=== PATIENT | female | born 1965 | race Caucasian/White ===

== ENCOUNTER 2017-10-02 12:41 | Emergency (ER) | payer OTHER, SELFPAY ==
[2017-10-02 12:42] VITALS: BP 171/103; PULSE 79; RESP 18; TEMP 36.8; O2SAT 99; BMI 30.2
--- NOTE | 2017-10-02 13:04 | EKG12_ITS ---
Test Reason : HYPERTENSION Blood Pressure : / mmHG Vent. Rate : 076 BPM Atrial Rate : 076 BPM P-R Int : 152 ms QRS Dur : 074 ms QT Int : 364 ms P-R-T Axes : 045 012 038 degrees QTc Int : 409 ms Normal sinus rhythm Normal ECG Confirmed by JAIME PEREZ ([id number]), editor magazine ELIEL RAMIREZ ([id number]) on 10/13/2017 6:28:45 PM Referred By: DAINA/CARLOS ENRIQUE Confirmed By:JAIME PEREZ
--- NOTE | 2017-10-02 13:05 | RAD_ITS ---
STUDY: X-RAY CHEST REASON FOR EXAM: Female, 52 years old. Hypertension and shortness of breath. TECHNIQUE: Single AP portable view of the chest. COMPARISON: None. FINDINGS: EKG electrodes are seen. The lungs are clear and expanded. There is no demonstrated pleural abnormality. Normal size heart. Normal mediastinum and ortega. Normal visualized pulmonary arteries. There is atherosclerotic tortuosity of the aortic arch and descending thoracic aorta. Normal visualized thoracic spine. Normal visualized ribs, clavicles, and shoulders. There is no demonstrated abnormality of the visualized soft tissue structures of the upper abdomen. RAD/Chest 1 View IMPRESSION: No acute abnormality is seen. Electronically Signed: Vinicio Altamirano MD at 13:46 EDT Tel [phone], Service support ,
--- NOTE | 2017-10-02 13:06 | CT_ITS ---
STUDY: CTA NECK WITH CONTRAST REASON FOR EXAM: Female, 52 years old. Dizziness. RADIATION DOSAGE (If Supplied By Facility): CTDIvol = ( 26.04 ) mGy, DLP = ( 1297.68 ) mGycm TECHNIQUE: CT angiography with multi-detector data acquisition was performed from the aortic arch to the skull base following intravenous administration of 100ML ml of Isovue 370 contrast. MIP images were reconstructed from the axial data set. Post-processing of the angiographic images was performed, with multiplanar reformation and 3D reconstruction. Individualized dose optimization techniques were used for this CT. COMPARISON: None. FINDINGS: There is enlargement of the left lobe of the thyroid gland with tiny hypodensities within it. AORTIC ARCH: Normal visualized aortic arch. Normal origins of the brachiocephalic, left common carotid, and left subclavian arteries. RIGHT CAROTID ARTERIES: Normal right common carotid artery (CCA). Normal right common carotid bulb. Normal origin of the right internal carotid (ICA) artery without a hemodynamically significant stenosis. Normal visualized cervical portion of the right internal carotid artery. Normal origin of the right external carotid artery (ECA). LEFT CAROTID ARTERIES: Normal left common carotid artery (CCA). Normal left common carotid bulb. Normal origin of the left internal carotid (ICA) artery without a hemodynamically significant stenosis. Normal visualized cervical portion of the left internal carotid artery. Normal origin of the left external carotid artery (ECA). VERTEBRAL ARTERIES: Normal bilateral vertebral arteries. CT/CTA Neck W/WO Contrast IMPRESSION: Normal bilateral cervical carotid and vertebral arteries. Electronically Signed: Vinicio Altamirano MD at 15:04 EDT Tel [phone], Service support ,
--- NOTE | 2017-10-02 13:06 | CT_ITS ---
STUDY: CTA OF THE BRAIN REASON FOR EXAM: Female, 52 years old. Dizziness. RADIATION DOSAGE (If Supplied By Facility): CTDIvol = ( 26.04 ) mGy, DLP = ( 1297.68 ) mGycm TECHNIQUE: CT angiography was performed with a multi-detector CT scanner. Data acquisition was obtained from the skull base through the vertex following intravenous administration of 100 ml of Isovue-370. MIP images were reconstructed from the axial data set. Post-processing of the angiographic images was performed, with multiplanar reformation and 3D reconstruction. Individualized dose optimization techniques were used for this CT. COMPARISON: None. FINDINGS: Normal bilateral petrous carotid arteries. There is calcified plaque formation of the right cavernous carotid artery, without a cross-sectional luminal stenosis. Normal left cavernous carotid artery with a normal supraclinoid bifurcation. I suspect a 3.1 mm x 3.2 mm aneurysm of the distal supraclinoid right carotid artery at the bifurcation of the A1 and M1 segment. Normal right A1 segments of the anterior cerebral artery. Normal left A1 segments of the anterior cerebral artery. Normal intact anterior communicating artery (ACOM). Normal bilateral A2 segments of the anterior cerebral arteries. Normal right M1 and M2 segments of the middle cerebral arteries, with a normal M1 bifurcation. Normal left M1 and M2 segments of the middle cerebral arteries, with a normal M1 bifurcation. Normal right posterior communicating artery (PCOM). Normal left posterior communicating artery (PCOM). Normal bilateral vertebral arteries. Normal basilar artery with a normal basilar bifurcation. The visualized bilateral superior cerebellar (SCA) arteries are normal. Normal bilateral P1, P2 and visualized P3 segments of the posterior cerebral arteries. There is no demonstrated abnormality of the visualized brain. CT/CTA Head W/WO Contrast IMPRESSION: Findings suggestive of a 3.1 mm x 3.2 mm aneurysm in the supraclinoid portion of the right internal carotid artery at the bifurcation of the right A1 and M1 segments. Electronically Signed: Vinicio Altamirano MD at 15:04 EDT Tel [phone], Service support ,
--- NOTE | 2017-10-02 13:20 | RAD_ITS ---
STUDY: X-RAY - LEFT ANKLE REASON FOR EXAM: Female, 52 years old. Pain following a twisting injury. TECHNIQUE: 3 view(s) of the ankle. COMPARISON: None. FINDINGS: Normal visualized distal tibia and fibula. Normal medial and lateral malleoli. Normal tibiotalar articulation and ankle mortise. Plantar spur. The visualized subtalar, talonavicular, calcaneocuboid and tarsal articulations are normal. Soft tissue swelling. RAD/Ankle min 3 Views IMPRESSION: Soft tissue swelling. Plantar spur. Electronically Signed: Vinicio Altamirano MD at 13:47 EDT Tel [phone], Service support ,
--- NOTE | 2017-10-02 13:26 | ED.VISSUMM ---
- ER Visit Summary Date of Service: 10/02/17 Chief Complaint: Hypertension History of Present Illness: The patient is a 52 F presenting with high blood pressure. Patient states that she feels off. She states she has felt like this for the past 2 days. She has difficulty describing her symptoms. She denies headache but complains of head heaviness. She states this was relieved with Aleve yesterday. She states this was not a sudden onset headache and was not the worst headache of her life. She has had blood pressures running 170s over 110s. She has no history of hypertension. She twisted her left ankle on Friday. She has a mild cough. Denies other complaints. Physical Examination: Vitals are stable. Blood pressure 171/103 patient is afebrile. Alert no acute distress. HEENT exam is unremarkable. Neck is supple. Lungs are clear and equal bilaterally. Heart is regular rate and rhythm. Abdomen is soft nontender nondistended. Extremities mild left ankle diffuse tenderness Skin is warm and dry. No focal neurologic deficit. Remainder of exam is unremarkable. Emergency Department Course and Treatment: EKG is sinus rate of 76 with no acute ischemic changes. Chest x-ray shows no acute process. Left ankle x-ray shows soft tissue swelling. CBC, chemistries are unremarkable. Troponin is negative. CTA head shows findings suggestive of a 3.1 mm x 3.2 mm aneurysm in the supraclinoid portion of the right internal carotid artery at the bifurcation of the right A1 and M1 segments. CT neck shows normal bilateral cervical carotid and vertebral arteries. Repeat blood pressure is 138/82 without treatment. Patient feels improved on reevaluation. Discussed with Dr. Huynh who recommends follow-up with interventional neuroradiology Dr. Pickard. Discussed with Dr. Pickard's office and they will call the patient for a follow-up appointment. Patient is given this information for follow-up. Discussed with Dr. Bonner. She will be started on metoprolol 12.5 mg p.o. as needed. She was advised to record her blood pressures and follow-up in the office next week. She is advised return to ED for any worsening complaints. 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 It may contain incorrect words, spelling, and punctuation that were not noted in review of the chart prior to signing ED Disposition - Plan for ED Patient: Chief Complaint: Hypertension Referrals: Alecia Bonner DO [Primary Care Provider] -
[2017-10-02 13:40] VITALS: BP 151/93; PULSE 76; RESP 16; O2SAT 97
[2017-10-02 13:46] LABS: Absolute Lymphocyte Count 2.43 X10^3/ul (0.83-4.51); Absolute Neutrophil Count 5.5 X10^3/uL (2.0-7.7); Basophil# 0.03 X10^3/uL; Basophil% 0.3 % (0-1); Eosinophil# 0.07 X10^3/uL; Eosinophils% 0.8 % (0-5); Hematocrit 40.9 % (37-47); Hemoglobin 13.7 g/dl (12.0-15.0); Lymphocyte # 2.43 X10^3/ul (4.0); Lymphocyte % 27.7 % (19-41); Mean Corp Hgb Conc 33.5 g/gl (32-36); Mean Corpuscular Hgb 30.1 pg (27.0-32.0); Mean Corpuscular Volume 89.9 fL (81-99); Mean Platelet Vol. 10.4 fl (6.2-12.0); Monocyte# 0.69 X10^3/uL; Monocyte% 7.9 % (0-10); Neutrophil # 5.51 X10^3/uL (2.7-7.7); Platelet Count 268 K/mm3 (150-450); RBC Distribution Width CV 13.3 % (11.6-14.6); RBC Distribution Width SD 43.3 fl (35.1-43.9); Red Blood Count 4.55 M/mm3 (4.2-5.4); White Blood Count 8.8 K/mm3 (4.4-11.0)
[2017-10-02 13:52] LABS: POSITIVE COUNT NO; POSITIVE DIFFERENTIAL NO; POSITIVE MORPHOLOGY NO
[2017-10-02 14:01] LABS: Anion Gap 7 (5-15); BUN 13 mg/dL (7-18); BUN/Creat Ratio 17.2 RATIO (10-20); Calcium,Total 8.7 mg/dL (8.5-10.1); Chloride 107 mmol/L (98-107); Creatinine, Serum 0.76 mg/dL (0.55-1.02); EST Glomerular Filtration Rate 86 mL/min (>60); Est Glom Filt Rate - Afr Amer 104 mL/min (>60); Estimated Creatinine Clearance 66.08 ml/min; Glucose 87 mg/dL (74-106); Potassium 3.8 mmol/L (3.5-5.1); Sodium Level 141 mmol/L (136-145)
[2017-10-02 15:45] VITALS: BP 135/82; PULSE 94; RESP 20; O2SAT 98
--- NOTE | 2017-10-02 16:30 | ED.DEP ---
ED Disposition - Plan for ED Patient: Chief Complaint: Hypertension Instructions: ED Hypertension New Begin Tx Prescriptions: Metoprolol Succinate 12.5 mg PO DAILY PRN PRN #[id number].er.[id number] PRN Reason: Blood Pressure Elevation Referrals: Alecia Bonner DO [Primary Care Provider] - Additional Instructions: Follow up with Dr Pickard [phone]
[2017-10-02 16:49] VITALS: BP 132/80; PULSE 71; RESP 16; O2SAT 99
== END 2017-10-02 16:49 | disposition home or self-care (01) ==
PROVIDERS: Emergency Provider Emergency Medicine; Family Provider Internal Medicine; PCP Internal Medicine
DX: I67.1 Cerebral aneurysm, nonruptured (principal); I10 Essential (primary) hypertension
CPT/HCPCS: 70496; 70498; 71045; 73610; 80048; 84484; 85025; 93005; 99285; Q9967; A4216

== ENCOUNTER → 2017-12-02 10:28 | Outpatient (CLI) | payer OTHER, SELFPAY ==
--- NOTE | 2017-12-02 10:30 | BI_ITS ---
MAMMOGRAPHY - BILATERAL SCREENING REASON FOR EXAM: Female, 52 years old. Routine annual screening examination. PERTINENT HISTORY: Non-contributory. History of a prior left biopsy demonstrating fibroadenoma. TECHNIQUE: Digital bilateral breast alpa (3D mammographic acquisition) in the CC and MLO projections. 2-D mediolateral oblique (MLO) and craniocaudad (CC) views of both breasts were obtained. CAD: Full Field Digital Mammography with Computer Added Detection was performed. COMPARISON: Comparison is made with prior examination dated November 27, 2015. FINDINGS: Breast Composition: The breasts are heterogeneously dense, which may obscure small masses. There are no dominant masses or suspicious calcifications. A tissue clip marker is seen in the upper outer quadrant of the left breast. Stable appearance of the underlying 2.2 cm nodule. No other significant abnormalities are identified. There has been no significant change since the prior study. BI/SCREENING MAMM (CAD), BILAT IMPRESSION: Stable bilateral screening mammogram. Yearly follow-up mammogram recommended. (A) ASSESSMENT CATEGORY: BIRADS Category 2: Benign. A letter regarding these results will be sent to the patient by the facility within 30 days. Approximately 10% of breast cancers are not detected by mammography. A normal mammogram should not delay biopsy of a clinically suspicious abnormality. [id number] Electronically Signed: Vinicio Altamirano MD at 13:40 EDT Tel [phone], Service support ,
== END ==
PROVIDERS: Family Provider Internal Medicine; PCP Internal Medicine; Visit Provider Obstetrics & Gynecology
DX: Z12.31 Encounter for screening mammogram for malignant neoplasm of breast (principal)
CPT/HCPCS: 77063; 77067

== ENCOUNTER 2018-03-23 06:55 | Day surgery (SDC) | payer OTHER, SELFPAY ==
[2018-02-04 09:49] VITALS: BMI 30.7
[2018-03-23 07:24] VITALS: BP 120/87; PULSE 70; RESP 16; TEMP 37.4; O2SAT 98; BMI 30.7
--- NOTE | 2018-03-23 07:36 | H&P.OPEN ---
History of Present Illness Date of Admission: 03/23/18 The patient is a 52 year old F presents for screening colonoscopy. Patient states she has daily bowel movements denies any blood or abdominal pain or nausea or vomiting. Patient denies any family history of colon cancer. Patient has never had a previous colonoscopy. Past Medical/Surgical History - Planned Operation Planned Operative Procedure/s: COLONOSCOPY Date of Operative Procedure: 03/23/18 Permit Signed: No S.O.S: No Is This Patient Having a Total Joint: No - Previous Hospitalizations/Surgeries HX of Surgeries: KNEE SURGERY TO REMOVE /HEMATOMA, RIGHT. SURGERY ON TOE. EPIDURAL LABOR X2. ANGIOGRAM 2018/[facility] GEN. ENDOMETRIAL ABLATION Any Problems With Anesthesia: No You/Your Family Experience Fever (Hyperthermia) With Anes: No Cholinesterase deficiency: No - Cardiovascular Hx Chest Pain within Last 2 months: No Hx of Irregular Heartbeat and/or Afib: Yes - HX MURMUR Hx Heart Attack: No Hx Congestive Heart Failure: No Hx Rheumatic Fever: No Hx Hypertension: Yes - STATES CONTROLLED WITH MED Hx Internal Defibrillator: No Hx Pacemaker: No Hx Cardiac Catheterization: No Hx Cardiac Surgery/Stents/Etc.: No Hx Stress Test: No HX Edema: No Hx Pain in Legs when Walking/Leg Cramps: No - Respiratory Chronic Cough: No HX of Shortness of Breath: Yes - SLIGHTLY SOB WITH 2 FLIGHTS STAIRS Hoarseness: No Hx Chronic Obstructive Pulmonary Disease (COPD): No Hx Asthma: No Hx Emphysema: No Hx Sleep Apnea: No Hx Oxygen Use at Home: No Hx Respiratory Tract Infection/Cold (presently): No Do You Snore Loudly (louder than talking or can be heard): No Do You Often Feel Tired/ Fatigued/ Sleepy Dring Daytime?: Yes Has Anyone Observed You Stop Breathing During Sleep?: No Result (for STOP score): Positive Hx Smoking: No Smoking Status: Never smoker - Gastrointestinal Hx Gastroesophageal Reflux: No Hx Gastrointestinal Disorders: No Hx Gastrointestinal Bleed: No Hx Ulcer: No Hx Hiatal Hernia: No Difficulty Chewing/Swallowing: No Recent Onset of Swallowing Problems: No Special diet followed at home: No Hx Unplanned Weight Loss of 20#: No HX Unplanned Weight Gain of 20#: No - Neurological Hx Seizures: No HX Syncope/Blackout Spells/Unconsciousness: No Hx CVA/Stroke: No Hx Transient Ischemic Attacks (TIA): No Hx Multiple Sclerosis: No Hx Parkinson's Disease: No Hx Head/Neck Injury: No Hx Headaches: No Hx Back Injury/Pain: Yes - BACK INJURY PER HX/BULGING DISC Recent Onset of Speech Difficulty: No Restless Legs: No Does patient have nerve stimulator: No Patient instructed to have device shut off: No Rep notified?: No - Blood Disorder Hx Leukemia: No Bleeding Tendencies: Yes - BRUISE EASILY Hx Deep Vein Thrombosis: No Hx High Cholesterol: No Blood Transmitted Disease: No Hx Hepatitis: No Hx Cirrhosis: No Hx Anemia: No Hx Blood Disorders: No - Reproduction : No Is Patient Lactating: No Hx Hysterectomy: No Hx Tubal Ligation: No Are You Post Menopause: No Pt Instructed Not To Have Any Sex From Now Until Surgery: - HAD ABLATION - Genitourinary Hx Renal Disease: No - Musculoskeletal Hx Arthritis: No Hx Rheumatoid Arthritis: No Hx Gout: No Recent Onset of an Orthopedic Problem: No - Endocrine Hx Diabetes: No Thyroid Disease: No Hx Steroid Therapy: No - Psycho/Social Hx Substance Use: No Hx Alcohol Use: No Hx Anxiety: No Hx Depression: No Mental Illness: No Hx Dementia: No - Miscellaneous Hx Cancer: No Recent Exposure to Contagious Disease: No Active MRSA: No Hx of C-Diff: No Any Loose Teeth: No Additional information pertinent to anesthesia:: REQUESTS ULTRASOUND FOR DIFFICULT IV STICK IN PAST Allergies No Known Allergies Allergy (Verified 03/18/18 15:43) - Discharge Is Pt Admitted From a Penitentiary, or a [facility]: No Who Could Help: FATHER After D/C, Where Do you Plan to Go: Return Home - Physical Exam General: Alert, Oriented x3, Cooperative, No apparent distress HEENT: Atraumatic Lungs: Normal air movement Cardiovascular: Regular rate Abdomen: Soft, Non Tender, Non-Distended Extremities: No clubbing, No cyanosis, No edema Neurological: Cranial nerves II-XII grossly intact Psych/Mental Status: Normal Affect Vital Signs Temp Pulse Resp BP Pulse Ox 99.3 F H 70 16 120/87 H 98 03/23/18 07:24 03/23/18 07:24 03/23/18 07:24 03/23/18 07:24 03/23/18 07:24 Oxygen Delivery Method Room Air Weight: 162 lb 11.218 oz Body Mass Index (BMI) 30.7 Assessment/Plan 52-year-old female for screening colonoscopy Surgery Risks - Colonoscopy I discussed with the patient the risks of the procedure: Yes Risks Include but are not Limited To: Risks include but are not limited to: Bleeding, perforation requiring further surgery, inability to complete colonoscopy requiring barium enema. Patient had no further questions.
[2018-03-23 08:16] VITALS: BP 116/78; BP 116/83; BP 120/87; PULSE 70; PULSE 71; RESP 16; TEMP 36.9; O2SAT 100; O2SAT 98
--- NOTE | 2018-03-23 08:19 | OP.ENDO_ITS ---
Patient Name: Melody Serna Procedure Date: 03/23/2018 7:32 AM Date of : 1965 Age: 52 Procedure: Colonoscopy Indications: Screening for colorectal malignant neoplasm Providers: Daksha Valencia MD Medicines: Monitored Anesthesia Care Patient Profile: Last Colonoscopy: none. The patient's first colonoscopy is today. Complications: No immediate complications. Procedure: Pre-Anesthesia Assessment: - Prior to the procedure, a History and Physical was performed, and patient medications and allergies were reviewed. The patient's tolerance of previous anesthesia was also reviewed. The risks and benefits of the procedure and the sedation options and risks were discussed with the patient. All questions were answered, and informed consent was obtained. Prior Anticoagulants: The patient has taken no previous anticoagulant or antiplatelet agents. ASA Grade Assessment: II - A patient with mild systemic disease. After reviewing the risks and benefits, the patient was deemed in satisfactory condition to undergo the procedure. After I obtained informed consent, the scope was passed under direct vision. Throughout the procedure, the patient's blood pressure, pulse, and oxygen saturations were monitored continuously. The Colonoscope was introduced through the anus and advanced to the cecum, identified by the appendiceal orifice, ileocecal valve and palpation. The colonoscopy was performed without difficulty. The patient tolerated the procedure well. The quality of the bowel preparation was good. Scope In: 7:59:04 AM Scope Withdrawal Time 0 hours 9 minutes 42 seconds Scope Out: 8:14:10 AM Total Procedure Duration Time 0 hours 15 minutes 6 seconds Findings: The entire examined colon appeared normal. Internal hemorrhoids were found during retroflexion and during digital exam. The hemorrhoids were Grade I (internal hemorrhoids that do not prolapse). Impression: - The entire examined colon is normal. - Internal hemorrhoids. - No specimens collected. Recommendation: - Repeat colonoscopy for surveillance. - Repeat colonoscopy in 10 years for screening purposes. - Discharge patient to home. - Continue present medications. Procedure Code(s): --- Professional --- G0121, Colorectal cancer screening; colonoscopy on individual not meeting criteria for high risk Diagnosis Code(s): --- Professional --- Z12.11, Encounter for screening for malignant neoplasm of colon K64.0, First degree hemorrhoids CPT copyright 2017 [employer]. All rights reserved. The codes documented in this report are preliminary and upon talent acquisition administrator review may be revised to meet current compliance requirements. MD Daksha Dickerson MD 03/23/2018 8:19:21 AM This report has been signed electronically. Number of Addenda: 0 Note Initiated On: 03/23/2018 7:32 AM
[2018-03-23 08:25] VITALS: BP 119/78; BP 120/87; PULSE 59; RESP 16; O2SAT 100
[2018-03-23 08:30] VITALS: BP 120/87; BP 122/76; PULSE 53; RESP 16; O2SAT 100
[2018-03-23 08:35] VITALS: BP 120/87; BP 122/78; PULSE 52; RESP 16; TEMP 36.4; O2SAT 100
[2018-03-23 09:11] VITALS: BP 120/87
== END 2018-03-23 09:12 | disposition home or self-care (01) ==
LOC: EN 06:56 → AC 06:57
PROVIDERS: Family Provider Internal Medicine; PCP Internal Medicine; Referring Provider Surgery; Visit Provider Surgery
PROC: 0DJD8ZZ Inspection of Lower Intestinal Tract, Via Natural or Artificial Opening Endoscopic (ICD-10-PCS; CPT 45378; principal; 2018-03-23 07:55)
DX: Z12.11 Encounter for screening for malignant neoplasm of colon (principal); K64.0 First degree hemorrhoids; I10 Essential (primary) hypertension; Z79.899 Other long term (current) drug therapy
CPT/HCPCS: 45378; J7120

== ENCOUNTER → 2019-01-22 07:24 | Outpatient (CLI) | payer OTHER, SELFPAY ==
--- NOTE | 2019-01-22 07:31 | BI_ITS ---
MAMMOGRAPHY - BILATERAL SCREENING REASON FOR EXAM: Female, 53 years old. Routine annual screening examination. PERTINENT HISTORY: Non-contributory. Prior left breast biopsy. TECHNIQUE: Digital bilateral breast fidencio (3D mammographic acquisition) in the CC and MLO projections. 2-D mediolateral oblique (MLO) and craniocaudad (CC) views of both breasts were obtained. CAD: Full Field Digital Mammography with Computer Added Detection was performed. COMPARISON: Comparison is made with prior study dated December 02, 2017 and November 27, 2015. FINDINGS: Breast Composition: The breasts are heterogeneously dense, which may obscure small masses. There are no dominant masses or suspicious calcifications. Once again, a tissue clip marker is seen within the nodular density in the upper lateral portion of the left breast. The nodule measures 2.1 cm. No other significant abnormalities are identified. There has been no significant change since the prior study. BI/SCREEN MAMM (CAD) W/FIDENCIO BILAT IMPRESSION: Stable bilateral screening mammogram. Yearly follow-up mammogram recommended. (A) ASSESSMENT CATEGORY: BIRADS Category 2: Benign. A letter regarding these results will be sent to the patient by the facility within 30 days. Approximately 10% of breast cancers are not detected by mammography. A normal mammogram should not delay biopsy of a clinically suspicious abnormality. [id number] Electronically Signed: Vinicio Altamirano, at 11:13 EDT , Service support ,
== END ==
PROVIDERS: Family Provider Internal Medicine; PCP Internal Medicine; Referring Provider Obstetrics & Gynecology; Visit Provider Obstetrics & Gynecology
DX: Z12.31 Encounter for screening mammogram for malignant neoplasm of breast (principal)
CPT/HCPCS: 77063; 77067

== ENCOUNTER → 2020-01-24 16:24 | Outpatient (CLI) | payer OTHER, SELFPAY ==
[2019-10-14 08:51] VITALS: BMI 30.7
--- NOTE | 2020-01-24 16:24 | BI_ITS ---
MAMMOGRAPHY - BILATERAL SCREENING REASON FOR EXAM: Female, 54 years old. Routine annual screening examination. PERTINENT HISTORY: Non-contributory. TECHNIQUE: Digital bilateral breast fidencio (3D mammographic acquisition) in the CC and MLO projections. 2-D mediolateral oblique (MLO) and craniocaudad (CC) views of both breasts were obtained. CAD: Full Field Digital Mammography with Computer Added Detection was performed. COMPARISON: Comparison is made with prior study dated 01/22/2019 and 12/02/2017. FINDINGS: Breast Composition: The breasts are heterogeneously dense, which may obscure small masses. There are no dominant masses or suspicious calcifications. Once again, a tissue clip marker is seen within a nodular density in the upper lateral portion of the left breast. This nodule is unchanged and measures 2 cm. Stable benign-appearing bilateral axillary lymph nodes. No other significant abnormalities are identified. There has been no significant change since the prior study. BI/SCREEN MAMM (CAD) W/FIDENCIO BILAT IMPRESSION: Stable bilateral screening mammogram. Yearly follow-up mammogram recommended. (A) ASSESSMENT CATEGORY: BIRADS Category 2: Benign. A letter regarding these results will be sent to the patient by the facility within 30 days. Approximately 10% of breast cancers are not detected by mammography. A normal mammogram should not delay biopsy of a clinically suspicious abnormality. [id number] Electronically Signed: Vinicio Altamirano, at 8:27 EDT , Service support ,
== END ==
PROVIDERS: PCP Internal Medicine; Referring Provider Obstetrics & Gynecology; Visit Provider Obstetrics & Gynecology
DX: Z12.31 Encounter for screening mammogram for malignant neoplasm of breast (principal)
CPT/HCPCS: 77063; 77067

== ENCOUNTER → 2020-10-19 16:36 | Outpatient (CLI) | payer OTHER, SELFPAY ==
[2020-10-19 14:50] VITALS: BMI 30.7
[2020-10-25 12:50] LABS: HPV APTIMA, High Risk Negative (Negative)
== END ==
PROVIDERS: PCP Internal Medicine; Referring Provider Obstetrics & Gynecology; Visit Provider Obstetrics & Gynecology
DX: Z12.4 Encounter for screening for malignant neoplasm of cervix (principal)
CPT/HCPCS: 87624; 88175; G0145

== ENCOUNTER → 2020-11-21 13:18 | Outpatient (CLI) | payer OTHER, SELFPAY ==
[2020-10-19 14:50] VITALS: BMI 30.7
--- NOTE | 2020-11-21 13:24 | US_ITS ---
STUDY: ULTRASOUND OF THE FEMALE PELVIS - COMPLETE REASON FOR EXAM: Female, 55 years old. Enlarged uterus LMP: Patient is postmenopausal. Prior endometrial ablation. TECHNIQUE: Transabdominal and Transvaginal TECHNICAL QUALITY: Adequate. COMPARISON: None. FINDINGS: The uterus is anteverted and is in a midline position. The uterus is enlarged and measures 14.3 cm x 10.6 cm x 10.5 cm. Normal uterine cervix. The endometrium was not well visualized due to the large uterine fibroid. There is no demonstrated endometrial mass. There is a 9.4 cm x 9.2 cm x 8.6 cm fibroid. I.U.D. - The patient does not have an I.U.D. The right ovary is visualized. The right ovary measures 4.1 cm x 3.1 cm x 2.5 cm. There is no right ovarian cyst or ovarian mass. There is no visualized right adnexal mass or complex lesion. There is normal arterial and normal venous vascularity. The left ovary is visualized. The left ovary measures 4.1 cm x 3.8 cm x 2.2 cm. There is a dominant follicle measuring 1.2 cm x 1.2 cm x 1.3 cm. There is no visualized left adnexal mass or complex lesion. There is normal arterial and normal venous vascularity. There is no fluid in the cul-de-sac. The pre void volume of the bladder was 367 ml. US/Pelvic (Non ) IMPRESSION: Enlarged fibroid uterus. The fibroid measures 9.4 cm x 9.2 cm x 8.6 cm. Electronically Signed: Vinicio Altamirano MD at 20:26 EDT , Service support ,
--- NOTE | 2020-11-21 13:24 | US_ITS ---
STUDY: ULTRASOUND OF THE FEMALE PELVIS - COMPLETE REASON FOR EXAM: Female, 55 years old. Enlarged uterus LMP: Patient is postmenopausal. Prior endometrial ablation. TECHNIQUE: Transabdominal and Transvaginal TECHNICAL QUALITY: Adequate. COMPARISON: None. FINDINGS: The uterus is anteverted and is in a midline position. The uterus is enlarged and measures 14.3 cm x 10.6 cm x 10.5 cm. Normal uterine cervix. The endometrium was not well visualized due to the large uterine fibroid. There is no demonstrated endometrial mass. There is a 9.4 cm x 9.2 cm x 8.6 cm fibroid. I.U.D. - The patient does not have an I.U.D. The right ovary is visualized. The right ovary measures 4.1 cm x 3.1 cm x 2.5 cm. There is no right ovarian cyst or ovarian mass. There is no visualized right adnexal mass or complex lesion. There is normal arterial and normal venous vascularity. The left ovary is visualized. The left ovary measures 4.1 cm x 3.8 cm x 2.2 cm. There is a dominant follicle measuring 1.2 cm x 1.2 cm x 1.3 cm. There is no visualized left adnexal mass or complex lesion. There is normal arterial and normal venous vascularity. There is no fluid in the cul-de-sac. The pre void volume of the bladder was 367 ml. US/Transvaginal Non- IMPRESSION: Enlarged fibroid uterus. The fibroid measures 9.4 cm x 9.2 cm x 8.6 cm. Electronically Signed: Vinicio Altamirano MD at 20:26 EDT , Service support ,
== END ==
PROVIDERS: PCP Internal Medicine; Referring Provider Obstetrics & Gynecology; Visit Provider Obstetrics & Gynecology
DX: N85.2 Hypertrophy of uterus (principal)
CPT/HCPCS: 76830; 76856

== ENCOUNTER → 2021-01-24 12:53 | Outpatient (CLI) | payer OTHER, SELFPAY ==
[2019-10-14 08:51] VITALS: BMI 30.7
--- NOTE | 2021-01-24 12:55 | BI_ITS ---
MAMMOGRAPHY - BILATERAL SCREENING REASON FOR EXAM: Female, 55 years old. Routine annual screening examination. PERTINENT HISTORY: Non-contributory. Prior left ultrasound-guided breast biopsy. TECHNIQUE: Digital bilateral breast fidencio (3D mammographic acquisition) in the CC and MLO projections. 2-D mediolateral oblique (MLO) and craniocaudad (CC) views of both breasts were obtained. CAD: Full Field Digital Mammography with Computer Added Detection was performed. COMPARISON: Comparison is made with prior study dated 01/24/2020 and 01/22/2019. FINDINGS: Breast Composition: The breasts are heterogeneously dense, which may obscure small masses. There are no dominant masses or suspicious calcifications. A tissue clip marker is once again seen within the nodular density in the upper lateral portion of the left breast. This measures 2 cm. This is unchanged. Stable benign-appearing bilateral axillary lymph nodes. No other significant abnormalities are identified. There has been no significant change since the prior study. BI/SCRN MAMM (CAD)W/FIDENCIO BILAT IMPRESSION: Stable bilateral screening mammogram. Yearly follow-up mammogram recommended. (A) ASSESSMENT CATEGORY: BIRADS Category 2: Benign. A letter regarding these results will be sent to the patient by the facility within 30 days. Approximately 10% of breast cancers are not detected by mammography. A normal mammogram should not delay biopsy of a clinically suspicious abnormality. [id number] Electronically Signed: Vinicio Altamirano MD at 14:13 EDT , Service support ,
== END ==
PROVIDERS: PCP Internal Medicine; Referring Provider Obstetrics & Gynecology; Visit Provider Obstetrics & Gynecology
DX: Z12.31 Encounter for screening mammogram for malignant neoplasm of breast (principal)
CPT/HCPCS: 77063; 77067

== ENCOUNTER → 2021-01-31 14:18 | Outpatient (CLI) | payer OTHER, SELFPAY ==
--- NOTE | 2021-01-31 14:20 | US_ITS ---
STUDY: ULTRASOUND TRANSVAGINAL CLINICAL: Female, 55 years old. Enlarged uterus TECHNIQUE: Transabdominal and Transvaginal COMPARISON: None. FINDINGS: Uterus measures 14.7 x 8.8 x 10.2 cm in maximal dimension. Large fundal fibroids, best characterized fibroid measures at least 8.4 cm in maximal dimension. Endometrium not well identified. Nabothian cysts are identified. Normal right ovary, measuring 3.8 x 3.3 x 2.1 cm. There are multiple follicles without a dominant cyst. Normal left ovary, measuring 3.1 x 2.5 x 1.8 cm. There are multiple follicles without a dominant cyst. There is no free fluid in the pelvis. Polycystic ovary disease: No. US/Transvaginal Non- IMPRESSION: Fibroid uterus as above. Endometrium is not visualized on this examination. Electronically Signed: Rebel Pimentel MD at 17:05 EDT Tel , Service support ,
--- NOTE | 2021-01-31 14:20 | US_ITS ---
STUDY: ULTRASOUND TRANSVAGINAL CLINICAL: Female, 55 years old. Enlarged uterus TECHNIQUE: Transabdominal and Transvaginal COMPARISON: None. FINDINGS: Uterus measures 14.7 x 8.8 x 10.2 cm in maximal dimension. Large fundal fibroids, best characterized fibroid measures at least 8.4 cm in maximal dimension. Endometrium not well identified. Nabothian cysts are identified. Normal right ovary, measuring 3.8 x 3.3 x 2.1 cm. There are multiple follicles without a dominant cyst. Normal left ovary, measuring 3.1 x 2.5 x 1.8 cm. There are multiple follicles without a dominant cyst. There is no free fluid in the pelvis. Polycystic ovary disease: No. US/Pelvic (Non ) IMPRESSION: Fibroid uterus as above. Endometrium is not visualized on this examination. Electronically Signed: Rebel Pimentel MD at 17:05 EDT Tel , Service support ,
== END ==
PROVIDERS: PCP Internal Medicine; Referring Provider Obstetrics & Gynecology; Visit Provider Obstetrics & Gynecology
DX: N85.2 Hypertrophy of uterus (principal)
CPT/HCPCS: 76830; 76856

== ENCOUNTER 2021-03-06 09:16 | Day surgery (SDC) | payer OTHER, SELFPAY ==
--- NOTE | 2021-03-02 14:10 | EKG12_ITS ---
Test Reason : PREOP Blood Pressure : / mmHG Vent. Rate : 085 BPM Atrial Rate : 085 BPM P-R Int : 164 ms QRS Dur : 078 ms QT Int : 354 ms P-R-T Axes : 058 006 051 degrees QTc Int : 421 ms Normal sinus rhythm Normal ECG Confirmed by MAVERICK EVANS, MOIZ ([id number]), digital editor DIPIKA PARIKH ([id number]) on 03/06/2021 9:53:23 AM Referred By: Tahira Do Confirmed By:MOIZ TEMPLE MD
[2021-03-02 14:47] LABS: Absolute Lymphocyte Count 2.84 X10^3/uL (0.83-4.51); Absolute Neutrophil Count 6.1 X10^3/uL (2.0-7.7); Basophil# 0.03 X10^3/uL; Basophil% 0.3 % (0-1); Eosinophil# 0.07 X10^3/uL; Eosinophils% 0.7 % (0-5); Hematocrit 41.1 % (37-47); Hemoglobin 13.5 g/dL (12.0-15.0); Lymphocyte # 2.84 X10^3/ul (0.83-4.51); Lymphocyte % 29.4 % (19-41); Mean Corp Hgb Conc 32.8 g/dL (32-36); Mean Corpuscular Hgb 29.5 pg (27.0-32.0); Mean Corpuscular Volume 89.9 fL (81-99); Mean Platelet Vol. 10.2 fl (6.2-12.0); Monocyte# 0.63 X10^3/uL; Monocyte% 6.5 % (0-10); NRBC Flagged by Analyzer 0 % (0-5); Neutrophil # 6.07 X10^3/uL (2.7-7.7); Neutrophil % 62.8 % (47-70); Platelet Count 290 K/mm3 (150-450); RBC Distribution Width SD 42.5 fl (35.1-43.9); Red Blood Count 4.57 M/mm3 (4.2-5.4); White Blood Count 9.7 K/mm3 (4.4-11.0)
[2021-03-02 15:10] LABS: ALB/GLOB Ratio 0.9 RATIO (0.9-2.4); AST(SGOT) 18 U/L (15-37); Alanine Aminotransfer ALT/SGPT 19 U/L (13-56); Albumin, Serum 3.3 g/dL (3.2-5.0); Alkaline Phosphatase 75 U/L (45-117); Anion Gap 5 (5-15); BUN 17 mg/dL (7-18); BUN/Creat Ratio 18.8 RATIO (10-20); Calcium,Total 8.5 mg/dL (8.5-10.1); Chloride 106 mmol/L (98-107); EST Glomerular Filtration Rate 69 mL/min (>60); Est Glom Filt Rate - Afr Amer 84 mL/min (>60); Globulin 3.8 g/dL (2.2-4.2); Glucose 104 mg/dL (74-106); Magnesium 1.8 mg/dL (1.6-2.6); Potassium 3.7 mmol/L (3.5-5.1); Protein, Total 7.1 g/dL (6.4-8.2); Sodium Level 141 mmol/L (136-145)
[2021-03-06] VITALS (20 sets, daily range): BP systolic 78–133; BP diastolic 50–85; PULSE 65–89; RESP 6–18; TEMP 36.3–37.7; O2SAT 88–99; BMI 32.5
--- NOTE | 2021-03-06 | HYST_PTH ---
PATIENT: JUAN NAIDU [place] [facility] [place][id number] AGE/SX: 55/F ROOM: RE03/06/[address]: Dr. Tahira Do MD : 1965 BED: DIS: 03/06/2021 SPEC #: [id number] RECD: 03/06/21 14:51 STATUS: TAY FRANK #: [id number] NIEVES: 03/06/21 00:[address]: Tahira Do DEPT: SURGICAL PATHOLOGY RECD BY: Randy Carpio ENTERED: 03/07/21 09:10 SP TYPE: HYSTERECT OTHR DR: Dr. Alecia Bonner DO Tissues: Uterus, NOS Procedures: Surgery Specimen Level V HEADER OPERATION: ERAS, hysterectomy, LAVH, salpingectomy PRE-OP DIAGNOSIS: Uterine fibroid, enlarged uterus TISSUE SUBMITTED: Cervix, uterus, bilateral fallopian tubes MICROSCOPIC DIAGNOSIS Cervix, uterus, bilateral fallopian tubes, hysterectomy and bilateral salpingectomy: Cervix ? mild chronic cystic cervicitis. Endometrium ? see comment. Myometrium ? intramural leiomyomas (largest measuring 8 cm in greatest dimension). Bilateral fallopian tubes - no pathologic diagnosis. SJ:rg 03/08/2021 COMMENT The endometrium is not identified in the sections examined. MICROSCOPIC DESCRIPTION Slides are reviewed. GROSS DESCRIPTION Received in fixative is one container labeled with the patient's name and designated cervix, uterus, bilateral fallopian tubes. The specimen consists of a hysterectomy specimen consisting of uterus with cervix in multiple pieces and bilateral fallopian tubes attached to the largest piece of uterus. The uterus with cervix in multiple pieces weigh in aggregate 577 gm. The largest piece of uterus measures 10 x 8 x 7 cm and the smaller pieces including cervix in aggregate measure 19 x 15 x 5 cm. Two detached pieces consistent with cervix are noted. The ectocervical mucosa is unremarkable. The endocervical canal measures 4 cm in length. The endocervical mucosa is bourgeois, glistening and unremarkable. Sections of the largest piece of uterus reveal a large nodular mass measuring 8 cm in greatest dimension. Sections of the smaller pieces also reveal nodular masses. An obvious endometrial cavity could not be identified. Sections of these masses reveal bourgeois whorled cut surfaces without areas of hemorrhage, necrosis or cystic degeneration. The fallopian tubes could not be oriented due to disrupted nature of the specimen. One of the fallopian tube measures 6 cm in length and up to 1 cm in diameter. The fimbrial end is identified. Sections reveal unremarkable cut surfaces. The second fallopian tube is similar appearance to the first one and measures 7 cm in length and up to 1 cm diameter. Foot Orthopedist sections are submitted in 12 cassettes as follows: 1 & 2 - cervix, 3-7 - uterine wall, 8 - largest nodular mass, 9 & 10 - smaller nodular masses, 11 &12 - fallopian tubes with each cassette containing one fallopian tube. / DARLEEN:mirna 03/07/21 TC:1 CPT: 74586
--- NOTE | 2021-03-06 05:22 | HP.PCM_ITS ---
History and Physical Date of Admission: 03/06/21 Intake Visit Reasons: [facility] Chief Complaint: pre op [facility] [employer] Reservations Required: No Is patient in pain?: No Allergies No Known Allergies Allergy (Verified 02/19/21 08:44) Is last menstrual period known: No Post menopausal: No Patient : No : No PFSH Medical History Hyperlipidemia Hypertension Surgical History History of endometrial ablation Social History number of children: 2 current occupational status: employed current occupation: speech therapist Smoking Status: Never smoker alcohol intake: never substance use type: does not use caffeine: Yes what type of physical activity do you participate in: none seatbelt use: always do you feel safe at home: Yes HPI CLAIRE BS Details: JUAN NAIDU is a 55 year old who presents for preop visit with enlarged uterus, multiple fibroids and she had had an ablation a long time ago and hasn't had bleeding but uterus has been enlarged. Female Reproductive History Menopausal Symptoms: No hot flashes, No night sweats, No difficulty concentrating and No change in libido Pregancy History 2 Elective abortions Hx Para 2 Spontaneous abortions Hx # Term Pregnancies Ectopic pregnancies Hx # Pregnancies Multiple births # of living children 2 Past Pregnancies Del. Date Name GA/Weeks Outcome Route Bth Weight Infant Gen Labor Lgth Anesthesia Del [facility] Provider FOB Unknown Jose 1994 Unknown [id number] ROS Const Constitutional: Reports as per HPI; Denies fatigue, increased appetite, poor appetite, night sweats, weight gain or weight loss ENT ENT: Reports system reviewed and no additional complaints, except as documented Cardio Card: Denies chest pain Resp Resp: Denies cough or dyspnea GI GI: Reports as per HPI, abdominal pain and bloating; Denies constipation, nausea or vomiting : Reports as per HPI, urinary frequency, urinary urgency and other; Denies difficulty voiding, dysuria, hematuria, hot flashes, nipple discharge, pelvic pain, prolapse symptoms, urinary incontinence, vaginal discharge, vaginal dryness, vaginal odor or vaginal pruritus Musc Musc: Denies arthralgias, back pain or muscle weakness Skin Skin/Breast: Denies changing lesions, breast mass, breast pain, breast skin changes or nipple discharge Neuro Neuro: Reports system reviewed and no additional complaints, except as documented Psych Psych: Denies anxiety, change in libido, depression or difficulty concentrating Endo Endo: Denies cold intolerance, excessive sweating, heat intolerance or polydipsia Mir/Lymph Hematologic/Lymphatic: Denies easy bleeding, Denies easy bruising and Denies lymphadenopathy Exam Const General: cooperative, healthy appearing, comfortable, no acute distress, well developed and well groomed Orientation: alert [facility] Head: normal to inspection and normocephalic Ears: hearing grossly normal bilaterally and external ears normal Nose: external nose normal Face and sinus: normal facial exam Neck Neck: normal visual inspection, full ROM and no lymphadenopathy Thyroid: thyroid normal Chest Chest palpation & inspection: normal inspection of the chest Resp Effort & Inspection: normal respiratory effort Auscultation: clear to auscultation bilaterally Cardio Rate: regular rate Rhythm: regular rhythm Heart Sounds: S1 normal and S2 normal GI Inspection: normal to inspection and non-distended Palpation: soft, no hepatosplenomegaly and no guarding General: bladder normal to palpation External Female Exam: normal external appearance, normal appearance of the urethra and no lesions Urethra: normal appearance of the urethra and normal palpation Speculum Exam - Vagina: normal appearance of the vagina and normal vaginal discharge Speculum Exam - Cervix: normal appearance of the cervix, no cervical discharge, no lesions and nontender Bimanual Exam- Vagina & Uterus: normal bimanual exam, bladder normal to palpation, No tender, uterine mobility normal, non-tender, no cervical motion tenderness and enlarged (12-14 weeks anterior enlarged) Bimanual Exam- Adnexa, other: normal adnexae, no masses, normal and non-tender Pelvic Support: normal Musc Other: gross motor intact no deficits, full bilateral strength Skin General: no rashes or lesions noted Neuro General: patient alert, moves all extremities and no focal motor deficits Motor: muscle tone normal throughout Extrem General: normal to inspection and no pedal edema Psych Appearance: grossly normal Mental Status: mental status grossly normal Affect: normal affect Speech and Movement: speech and movement normal Attitude: cooperative Coding Level of Care Code No Charge Diagnoses Uterine fibroid D25.9 Enlarged uterus N85.2 Assessment and Plan Assessment and Plan (1) Uterine fibroid: Status: Acute Comment: 13 cm uterus with 9 cm fibroid. Plan [facility] possible TLH possible cystoscopy possible minilaparotomy. discussed medical vs surgical options. Plan - Dr. Tahira Do MD: After discussing the patient's diagnosis and treatment plan options, patient wishes to proceed with surgical management. I have discussed with the patient the risks, benefits, and alternatives of the procedure which include but are not limited to risks of anesthesia, bleeding, infection, possible damage to bowel, bladder, or surrounding vasculature which could lead to additional surgery to evaluate any complications. Patient agrees to procedure and wishes to proceed. ACOG/uptodate references given for additional information regarding procedure. (2) Enlarged uterus: Status: Acute Comment: pelvic ultrasound UPDATE- I have seen the patient and performed any clinically relevant updates to the history and physical exam. Tahira Do MD
[2021-03-06] MEDS: Scopolamine 1mg/72hr Patch 1 PATCH TD (10:07)
[2021-03-06] MEDS: Gabapentin 600 MG Tablet PO (10:07)
[2021-03-06] MEDS: Acetaminophen 500 MG Tablet 1000 MG PO (10:07)
[2021-03-06] MEDS: Celecoxib 200 MG Capsule 400 MG PO (10:07)
[2021-03-06] MEDS: Phenazopyridine 95 MG Tablet 190 MG PO (10:07)
[2021-03-06] MEDS: dexAMETHasone 10 MG/ML Vial 8 MG IV (10:08)
[2021-03-06] MEDS: Enoxaparin 40 MG/0.4 ML Syringe SC (10:08)
[2021-03-06] MEDS: Lactated Ringers 1,000 ML 40 ML IV ×2 (10:08→12:30)
[2021-03-06 10:16] LABS: Bedside Glucose 81 mg/dL (70-110)
[2021-03-06] MEDS: Cefazolin 2 GM in 0.9% Normal Saline 100 ML IV (11:22)
--- NOTE | 2021-03-06 11:39 | OP.PCM_ITS ---
Problems Associated Problem List Diagnoses (1) Enlarged uterus: (2) Uterine fibroid: Report of Operation Date of Procedure: 03/06/21 Pre-Operative Diagnosis: AUB Post-Operative Diagnosis: same Surgery/Procedure Performed:: [employer] pigment and lacquer mixer: Hanna Velásquez Type of Anesthesia: General Specimen's removed: uterus, tubes Drains: carson Fluids Replaced: crystalloid Description of Procedure: Patient received preoperative antibiotics and SCDs were on preoperatively. Patient was taken back to the operating room and placed in the dorsal lithotomy position. General anesthesia was induced and patient was prepped and draped in normal sterile fashion. Uterine manipulator was placed inside the uterus and Carson catheter placed in the bladder. The umbilicus was grasped with towel clamps and an intraumbilical incision was made after injecting with quarter percent Marcaine and a Veress needle entered into the abdomen confirmed to be intra-abdominal with a low opening pressure. Abdomen was insufflated with CO2 gas and the Veress needle removed and the 5 mm trocar was placed under direct visualization without complication. Right and left lower quadrants were transilluminated and injected with quarter percent Marcaine and 5 mm ports placed under direct visualization. Pelvis was well visualized see operative findings for additional information. Bilateral fallopian tubes were identified and transected with the LigaSure device across the mesosalpinx to the level of the utero-ovarian ligament which was also transected with the LigaSure device. The broad ligament was opened up by transecting the round ligament bilaterally and skeletonizing the uterine vessels bilaterally and creating a bladder flap using the LigaSure device. The uterine arteries were transected bilaterally with good visualization of the bladder and the ureters were seen to be inferior lateral to the operative area. Attention was then paid to the vaginal portion of the procedure and the cervix was grasped with Shania clamps and circumferentially injected with dilute vasopressin. A circumferential incision was made and the vaginal mucosa was mobilized off posteriorly and the cul-de-sac entered into sharply and a longneck speculum placed. The anterior cul-de-sac was then identified and entered into sharply. The uterosacral ligaments were clamped cut and suture ligated with 0 Monocryl bilaterally followed by the cardinal ligaments which were clamped cut and suture ligated bilaterally with 0 Monocryl. The uterus serially descended and was removed though morcellation via wedge resection. Pelvic sidewall pedicles were checked and noted to have excellent hemostasis after additional sutures were placed. The vaginal mucosa was reapproximated incorporating the posterior peritoneum. This was reapproximated using 0 Vicryl [id number] sutures. Excellent hemostasis was noted. The pelvis and cul-de-sac were well visualized and no significant active bleeding noted but some raw areas were seen on the peritoneum and therefore floseal was applied. Pressure was taken down and the areas visualized and noted of excellent hemostasis. All ports were removed under direct visualization without complication and the abdomen was desufflated of air. The instruments were removed from the abdomen and the vaginal sweep was negative. Port sites on the abdomen were closed with 4-0 Monocryl interrupted sutures and Steri's and windows were applied. She was awok en and taken recovery in stable condition. Grafts/Implants Used: none Complications none Admit VTE Documentation VTE Present on Admission: No VTE Mechan Device Prophylaxis: SCD's VTE Pharm Prophylaxis ordered?: Yes Procedures Urinary/Genital 52xxx-59xxx: 53891 LAVH+BS/O >250gr Uterus
[2021-03-06] MEDS: Lubricating Jelly 60 GM Tube 30 GM TOPICAL (11:58)
[2021-03-06] MEDS: Vasopressin 20 UNITS/ML Vial (11:58)
[2021-03-06] MEDS: Bupivacaine 0.25% 30 ML Vial (12:00)
[2021-03-06] MEDS: Lactated Ringers 1,000 ML 500 ML IV (18:30)
--- NOTE | 2021-03-06 19:42 | PCM.DC ---
Discharge Instructions Diet Discharge Diet: No restrictions Activity Discharge Activity: Return to Normal Activity, May Not Drive (while taking narcotic pain medications.) and May Shower May resume sexual activity in: 6-8 weeks Dressing / Incision Call your doctor if your incision/area has: Continuous Slow Oozing, Sudden Increased Bleeding, Increased Pain/ Swelling, Increased Redness and Foul Smelling Discharge Call your doctor if you observe: Fever of 101 or Higher, Inability to urinate, Inability to have a bowel movement and Using more than 1 pad per hour Follow Up Care Please Follow Up With: Tahira Do MD Test Results: Test results from this visit will be discussed in further detail at your follow-up appointment, if applicable. Discharge Plan Admission Attending Provider: Tahira Do Primary Care Provider: Alecia Bonner Discharge Orders/Prescriptions Prescriptions: New naproxen 250 MG tablet 250 - 500 mg PO Q8H PRN PRN (Reason: MILD PAIN) Qty: 30 RF: 1 oxycodone-acetaminophen [Percocet] 5-325 mg tablet 1 tab PO Q6H PRN (Reason: pain) 7 Days Qty: 20 RF: 0 Continued metoprolol succinate 50 MG tablet extended release 24 hr 50 mg PO DAILY RF: 0 Referrals / Follow Up: Alecia Bonner DO [Primary Care Provider] - Disposition Disposition (needs filled in before D/C Order can be placed): Home, Self Care
== END 2021-03-06 20:13 | disposition home or self-care (01) ==
LOC: SDC 09:17 → AC 09:22
PROVIDERS: PCP Internal Medicine; Referring Provider Obstetrics & Gynecology; Visit Provider Obstetrics & Gynecology
PROC: 0UT9FZZ Resection of Uterus, Via Natural or Artificial Opening With Percutaneous Endoscopic Assistance (ICD-10-PCS; principal; 2021-03-06 10:45)
DX: D25.1 Intramural leiomyoma of uterus (principal); N72 Inflammatory disease of cervix uteri; E78.5 Hyperlipidemia, unspecified; I10 Essential (primary) hypertension; N85.2 Hypertrophy of uterus; Z79.899 Other long term (current) drug therapy; K21.9 Gastro-esophageal reflux disease without esophagitis
CPT/HCPCS: 58554; 36415; 80053; 82962; 83735; 85018; 85025; 86850; 86900; 86901; 88307; 93005; J7120; J2405

== ENCOUNTER → 2022-03-29 | Outpatient (CLI) | payer OTHER, SELFPAY ==
--- NOTE | 2022-03-29 07:38 | BI_ITS ---
MAMMOGRAPHY - BILATERAL SCREENING REASON FOR EXAM: Female, 56 years old. Routine annual screening examination. PERTINENT HISTORY: Mother with breast cancer. Prior left ultrasound guided breast biopsy with tissue diagnosis of fibroadenoma. TECHNIQUE: Digital bilateral breast fidencio (3D mammographic acquisition) in the CC and MLO projections. 2-D mediolateral oblique (MLO) and craniocaudad (CC) views of both breasts were obtained. CAD: Full Field Digital Mammography with Computer Added Detection was performed. COMPARISON: 01/24/2021, 01/24/2020. FINDINGS: Breast Composition: The breasts are heterogeneously dense, which may obscure small masses. There are no dominant masses or suspicious calcifications. Stable biopsy marker in a stable area of asymmetrical breast tissue in the left upper outer breast. Stable benign-appearing small bilateral axillary lymph nodes. No other significant abnormalities are identified. There has been no significant change since the prior study. BI/SCRN MAMM (CAD)W/FIDENCIO BILAT IMPRESSION: Stable bilateral screening mammogram. Yearly follow-up mammogram recommended. (A) ASSESSMENT CATEGORY: BIRADS Category 2: Benign. A letter regarding these results will be sent to the patient by the facility within 30 days. Approximately 10% of breast cancers are not detected by mammography. A normal mammogram should not delay biopsy of a clinically suspicious abnormality. Electronically Signed: Lan Christian, at 11:31 EST ,
== END | disposition home or self-care (01) ==
LOC: OPBI 08:07
PROVIDERS: PCP Internal Medicine; Visit Provider Obstetrics & Gynecology
DX: Z12.31 Encounter for screening mammogram for malignant neoplasm of breast (principal)
CPT/HCPCS: 77063; 77067

== ENCOUNTER → 2023-04-04 | Outpatient (CLI) | payer OTHER, SELFPAY ==
--- NOTE | 2023-04-04 15:15 | BI_ITS ---
MAMMOGRAPHY - BILATERAL SCREENING REASON FOR EXAM: Female, 57 years old. Routine annual screening examination. PERTINENT HISTORY: Mother with breast cancer. Prior ultrasound-guided breast biopsy. TECHNIQUE: Digital bilateral breast fidencio (3D mammographic acquisition) in the CC and MLO projections. 2-D mediolateral oblique (MLO) and craniocaudad (CC) views of both breasts were obtained. CAD: Full Field Digital Mammography with Computer Added Detection was performed. COMPARISON: Comparison is made with prior study March 29, 2022 and January 24, 2021. FINDINGS: Breast Composition: The breasts are heterogeneously dense, which may obscure small masses. Stable 1.1 cm nodule in the upper lateral aspect of the left breast. A tissue clip marker seen within. No other significant abnormalities are identified. There has been no significant change since the prior study. BI/SCRN MAMM (CAD)W/FIDENCIO BILAT IMPRESSION: Stable bilateral screening mammogram. Yearly follow-up mammogram recommended. (A) ASSESSMENT CATEGORY: BIRADS Category 2: Benign. A letter regarding these results will be sent to the patient by the facility within 30 days. Approximately 10% of breast cancers are not detected by mammography. A normal mammogram should not delay biopsy of a clinically suspicious abnormality. [id number] Electronically Signed: Vinicio Altamirano MD at 8:39 EST ,
== END | disposition home or self-care (01) ==
LOC: OPBI 15:15
PROVIDERS: PCP Internal Medicine; Referring Provider Obstetrics & Gynecology; Visit Provider Obstetrics & Gynecology
DX: Z12.31 Encounter for screening mammogram for malignant neoplasm of breast (principal)
CPT/HCPCS: 77063; 77067

== ENCOUNTER → 2024-04-12 | Outpatient (CLI) | payer OTHER, SELFPAY ==
--- NOTE | 2024-04-12 16:03 | BI_ITS ---
MAMMOGRAPHY - BILATERAL SCREENING REASON FOR EXAM: Female, 58 years old. Routine annual screening examination. PERTINENT HISTORY: Mother with breast cancer. Prior left ultrasound-guided breast biopsy TECHNIQUE: Digital bilateral breast fidencio (3D mammographic acquisition) in the CC and MLO projections. 2-D mediolateral oblique (MLO) and craniocaudad (CC) views of both breasts were obtained. CAD: Full Field Digital Mammography with Computer Added Detection was performed. COMPARISON: Comparison is made with prior study dated April 04, 2023 and March 29, 2022. FINDINGS: Breast Composition: The breasts are heterogeneously dense, which may obscure small masses. There are no dominant masses or suspicious calcifications. Once again, a tissue clip marker is seen within the nodule in the upper lateral aspect of the left breast. No other significant abnormalities are identified. There has been no significant change since the prior study. BI/SCRN MAMM (CAD)W/FIDENCIO BILAT IMPRESSION: Stable bilateral screening mammogram. Yearly follow-up mammogram recommended. (A) ASSESSMENT CATEGORY: BIRADS Category 2: Benign. A letter regarding these results will be sent to the patient by the facility within 30 days. Approximately 10% of breast cancers are not detected by mammography. A normal mammogram should not delay biopsy of a clinically suspicious abnormality. [id number] Electronically Signed: Vinicio Altamirano MD at 8:47 EST ,
== END | disposition home or self-care (01) ==
LOC: OPBI 16:03
PROVIDERS: PCP Internal Medicine; Referring Provider Obstetrics & Gynecology; Visit Provider Obstetrics & Gynecology
DX: Z12.31 Encounter for screening mammogram for malignant neoplasm of breast (principal)
CPT/HCPCS: 77063; 77067

== ENCOUNTER → 2025-04-14 | Outpatient (CLI) | payer OTHER, SELFPAY ==
--- NOTE | 2025-04-14 12:00 | BI_ITS ---
EXAM: SCRN MAMM (CAD)W/FIDENCIO BILAT DATE: 04/14/2025 CLINICAL HISTORY: F, Age 59 y/o , SCREEN FOR BREAST CANCER Mother with breath prior left ultrasound-guided breast TECHNIQUE: Procedure Code: [id number] Modality: MG Procedure: SCRN MAMM (CAD)W/FIDENCIO BILAT COMPARISON: Prior exam(s) dated April 12, 2024.. FINDINGS: TISSUE DENSITY: The breasts are heterogeneously dense, which may obscure small masses. Bilateral Breast Mammographic Findings: No significant masses, calcifications or other abnormalities are identified. A tissue clip marker is once again seen within a stable nodule in the upper lateral aspect of the left breast. No suspicious masses, areas of developing architectural distortion, or suspicious calcifications. There has been no significant interval change. BI/SCRN MAMM (CAD)W/FIDENCIO BILAT IMPRESSION: Stable bilateral screening mammogram. OVERALL FINAL ASSESSMENT BI-RADS 2: BENIGN RECOMMENDATION: Routine annual follow-up in 1 Year Additional Recommendation none A letter with findings and recommendations will be mailed to the patient. Reading Location: [place] [id number]
== END | disposition home or self-care (01) ==
LOC: OPBI 11:56
PROVIDERS: PCP Internal Medicine; Referring Provider Obstetrics & Gynecology; Visit Provider Obstetrics & Gynecology
DX: Z12.31 Encounter for screening mammogram for malignant neoplasm of breast (principal)
CPT/HCPCS: 77063; 77067